=== PATIENT | female | born 2000 | race Caucasian/White ===

== ENCOUNTER 2023-12-06 21:56 | Observation (INO) | payer OTHER, SELFPAY ==
[2023-12-06] VITALS (17 sets, daily range): BP systolic 109–137; BP diastolic 75–118; PULSE 110–135; BMI 31.9
[2023-12-06 16:01] LABS: % Basophils 0.4 % (0-2); % Immature Granulocytes 0.2 % (0-0.5); % Lymphocytes 39.7 % (20.5-51.1); % Monocytes 7.2 % (1.7-9.3); % Neutrophils 50.5 % (42.2-75.2); Absolute Eosinophils 0.2 10^3/uL (0-0.7); Absolute Lymphocytes 3.2 10^3/uL (1.2-3.4); Absolute Monocytes 0.6 10^3/uL (0.1-0.6); Absolute Neutrophils 4.1 10^3/uL (1.4-6.5); Hematocrit 39.9 % (37.0-47.0); Hemoglobin 14.9 g/dL (12.0-16.0); Mean Corp Hgb Conc. 37.3 g/dL (33.0-37.0); Mean Corpuscular Hgb 30.6 pg (27.0-31.0); Mean Corpuscular Volume 81.9 fL (81.0-99.0); Mean Platelet Volume 9.3 fL (7.4-10.4); Nucleated Red Blood Cells % 0 %; Platelet Count 340 10^3/uL (130-400); Red Blood Cell Count 4.87 10^6/uL (4.20-5.40); Red Cell Dist. Width 12.1 % (11.5-14.5)
--- NOTE | 2023-12-06 16:04 | ED.GENMED ---
History of Present Illness
General
Chief Complaint: Cardiac Symptoms
Source: patient
Exam Limitations: none
Time Seen by Provider: 12/06/23 16:02
Nursing documentation reviewed up to this point in time: agreed with
Travel History
Have you had any contact with someone who has COVID-19?: No
Do you have any symptoms of coronavirus? Fever > 100 degrees, chills, cough, shortness of breath, sore throat, loss of taste or smell, muscle aches, or headache?: No
History of Present Illness
History of Present Illness:
This is a 20-year-old female with a history of PCOS who presents emergency department today with palpitations and shortness of breath x 2 days. She states that she was stepping out of the shower last night when she started to feel shortness of
breath and palpitations and looked down at her Apple Watch and noticed that her heart rate was in the 110s to 120s. She states that her resting heart rate is usually in the 80s. She states that her high heart rate continued into the night and she
also had a heart rate that was high this morning. Patient states that her shortness of breath is present constantly, but it is worse with exertion, and was particularly worse today when she is stepping out of bed. Patient does take OCPs daily for
her PCOS. Patient denies chest pain, abdominal pain, nausea, vomiting, diarrhea, sick contacts, recent travel, leg pain or swelling. Patient denies fevers or chills. Patient denies recent illnesses, recent hospitalizations.
Review of Systems
Review of Systems
All Other Systems: ROS reviewed and negative except as documented in HPI and ROS
Phy Exam
Physical Exam
Physical Exam:
Vitals: tachycardic otherwise VSS
General: Patient has anxious affect although is well-appearing in general
Skin: Warm and dry, no rashes or lesions. Cap refill <2 seconds.
Head: normocephalic, atraumatic
Cardiac: Patient is tachycardic otherwise has regular rhythm, no murmurs, rubs, gallop
Pulm: Normal respiratory effort, lung sounds equal bilaterally, no wheezes, rales, rhonchi
Abdomen: abdomen is non-distended, non-tender
Neuro: AAO x3.
Course
Orders/Labs/Results
Orders:
Orders
12/06/23 14:50
EKG [Electrocardiogram (*1)] Urgent
Reason for Study: Tachycardia
EKG- Treatment ONCE
Test Result ONCE
12/06/23 15:11
Complete Blood Count/With Diff Urgent
Prothrombin Time Urgent
Troponin I Urgent
12/06/23 15:24
Add On- LAB Urgent
Tests Added?: TSH to reflex free T4
12/06/23 16:13
CR Chest - 2 Views Urgent
Comment:
Reason For Exam: shortness of breath
12/06/23 16:21
Comprehensive Metabolic Panel Urgent
D-Dimer Urgent
HCG, Serum Qualitative Screen Urgent
TSH Reflex To Free T4 Urgent
Comment: ADD-ON
12/06/23 16:52
0.9% Sodium Chloride 1000 ml [Nss] 1,000 ml IV BOLUS
12/06/23 17:30
Orthostatic VS- Treatment ONCE
12/06/23 19:21
Urine Culture Reflexed from UA [Urinalysis Reflex To Culture] Urgent
Date Specimen was Collected: 12/06/23
Time Specimen was Collected: 19:03
Urine Drug Abuse Screen Urgent
Date Specimen was Collected: 12/06/23
Time Specimen was Collected: 19:03
Urine Microscopic Reflex Cult Urgent
12/06/23 21:12
Add On- LAB Urgent
Tests Added?: urine drug screen
12/06/23 21:16
CARDIOLOGY CONSULT Routine
Consulting Provider: Vasile Herbert
Was physician already notified: Yes
Reason for consult: sinus tachy
12/06/23 21:17
Metoprolol [Lopressor] 25 mg PO NOW STA
12/06/23 21:26
Admit/Transfer Patient As Directed
Co-Sign Provider:
Level of Care: Observation services
Assign to:: Telemetry
Physician / Group: Davy
Diagnosis: sinus tachy
Reason for Telemetry: Arrhythmia
Date to Stop Telemetry: 12/09/23
Time to Stop Telemetry: 11:00
12/06/23 21:27
Code Status As Directed
Resuscitation Status: Full Code
12/07/23 00:02
0.9% Sodium Chloride 1000 ml [Nss] 1,000 ml IV 125 mls/hr
12/07/23 00:02
Echo 2D MMode Color/Doppler Routine
Reason for Study: sinus tachy
Activity As Directed
Activity Level: With Assistance
Vital Signs As Directed
Frequency: Per unit guidelines
DX Deep Vein Thrombosis Video Routine
12/07/23 Dinner
Regular
At Your Request: Full Participation
12/07/23 18:00
Enoxaparin Sodium [Lovenox] 40 mg SC QPM
12/09/23 11:00
DC Protocol for Telemetry ONCE
Abnormal Lab Results
12/06/23 12/06/23 12/06/23
15:11 16:21 19:21
MCHC 37.3 H g/dL
(33.0-37.0)
Chloride 109 H mmol/L
(98-107)
Carbon Dioxide 21 L mmol/L
(22-30)
Urine Ketones Trace A
(Negative)
Ur Occult Blood Reflex 1+ A
(Negative)
Leukocyte Esterase Rfl Trace A
(Negative)
Urine RBC 3-6 A /HPF
(0-2)
Urine Bacteria (Reflex) Few A
(Negative)
12/06/23 15:11
12/06/23 16:21
Vital Signs
Initial and Last Documented VS:
Initial Vital Signs
Temp Pulse Resp BP Pulse Ox
98.8 F 120 18 111/89 99
12/06/23 14:49 12/06/23 14:49 12/06/23 14:49 12/06/23 14:49 12/06/23 14:49
Last Documented Vital Signs
Temp Pulse Resp BP Pulse Ox
98.2 F 113 16 121/74 98
12/07/23 07:00 12/07/23 08:15 12/07/23 07:00 12/07/23 07:15 12/07/23 07:00
MDM/Problems Addressed
Differential Diagnosis Includes:
ddx include dehydration, pulmonary embolism, dysrhythmia, electrolyte abnormalities, pneumonia
MDM/Problems Addressed:
shortness of breath
palpitations
Chronic conditions affecting care:
PCOS
Acute Exacerbation and/or Progression of Chronic Illness:
n/a
*Pulse Oximetry
Patient hypoxic: no
*EKG
Interpreted by ED Provider?: Yes
EKG Intrepretation Date: 12/06/23
Interpretation: abnormal
Comparison EKG: no comparison EKG present
Heart Rate: 113
Rate: tachycardiac
Rhythm: sinus
[place]: normal axis
Interval: normal interval, normal QT interval and normal [place] interval
QRS Pattern: normal QRS
Ischemia: non-specific ST changes
*Microfilming Document Preparer Interpretation
Rate: tachycardiac
Interpretation: abnormal
Heart Rate: 127
Rhythm: sinus
*Critical Care Note
Total Time (30-74mins, 75-104mins- exclusive of procedures): Not Applicable
Data Reviewed
Review of Other/Old Records Reveals: Records (reviewed ER physician documentation from 03/22/16) and Discharge Summary (no discharge summaries in [facility] to review)
Source: patient and family
Patient Management
Escalation/DeEscalation of care consider admission/obs:
23-year-old female with a past medical history of PCOS on OCPs, presenting to the emergency department today with concerns of palpitations and shortness of breath. The symptoms are yesterday, and she reports that her heart rate has been through
states did not and tachycardic in the 120s to 130s. Here in the emergency department, her CBC, CMP are unremarkable and her D-dimer is within normal limits. Her chest x-ray demonstrates no acute cardiopulmonary abnormality. Her EKG shows no signs
of ischemia or any dysrhythmias. On multiple reevaluations, patient denies any new symptoms other than SOB with standing and still feeling her heart race. At this point, there is no clear reason for her tachycardia. Patient accepted by admitting
team, cardiology aware of case who will see her in morning.
ED Attending Note
-
Portions of this chart may have been created with voice recognition software.� Occasional wrong word or��sound alike� substitutions may have occurred due to the inherent limitations of voice recognition software.
Discharge Plan
Departure
Patient Disposition: Admit
Date of Disposition: 12/06/23
Time of Disposition: 21:11
Presentation/result/management discussed w/ accepting MD/DO: Hospitalist
Condition: Good
Discharge Problem:
Tachycardia
Interventions
Interventions:
*Risk Screen - Suicide Last Done: 12/07/23 00:04
*General Assessment Last Done: 12/06/23 15:08
*Neglect/Abuse Screening Last Done: 12/06/23 15:08
ED- Fall Risk Assessment Last Done: 12/06/23 18:56
*ED COVID-19 Vaccine History Last Done: 12/07/23 00:04
*Nursing Disposition Last Done: 12/07/23 00:06
ED- Pulmonary Assessment Last Done: 12/06/23 18:56
ED- Cardiac Assessment Last Done: 12/06/23 18:56
Discharge Date and Time
Discharge Date/Time: 12/07/23 00:07
[2023-12-06 16:26] LABS: Troponin I < 0.012 ng/ml
[2023-12-06 16:42] LABS: HCG, Serum Qualitative Screen Negative
[2023-12-06 16:47] LABS: ALT (SGPT) 24 U/L (0-35); AST (SGOT) 25 U/L (14-36); Albumin 4.5 g/dl (3.5-5.0); Alkaline Phosphatase 106 U/L (38-126); Blood Urea Nitrogen 11 mg/dl (7-17); Calcium 9.7 mg/dl (8.4-10.2); Carbon Dioxide 21 mmol/L (22-30); Chloride 109 mmol/L (98-107); Estimated Creatinine Clearance 122 ml/min; Glucose 98 mg/dl (70-99); Potassium 4.1 mmol/L (3.5-5.1); Sodium 136 mmol/L (135-145); Total Bilirubin 0.5 mg/dl (0.2-1.3); eGFR > 60.00
[2023-12-06 16:48] LABS: D-Dimer < 0.27 ug/mlFEU (0.00-0.50)
[2023-12-06] MEDS: NSS 1000 IV (17:03)
[2023-12-06 17:18] LABS: TSH Reflex To Free T4 1.17 uIU/ml (0.47-4.68)
[2023-12-06 19:29] LABS: Urine Albumin Negative (Neg - Trace); Urine Bilirubin Negative (Negative); Urine Character Clear (Clear); Urine Color Yellow; Urine Glucose Negative (Negative); Urine Ketone Trace (Negative); Urine Leukocyte Trace (Negative); Urine Nitrite Negative (Negative); Urine Occult Blood 1+ (Negative); Urine Specific Gravity 1.015 (<1.030); Urine Urobilinogen Negative (Neg - 1+); Urine pH 6.5 (5.0-9.0)
[2023-12-06 19:40] LABS: Urine Bacteria Few (Negative); Urine Squamous Cell 16-20 /LPF (Few)
--- NOTE | 2023-12-06 21:18 | HPS.HSE ---
Family Physician
-
Family Physician: Radha Torres
Chief Complaint
-
Palpitations
History of Present Illness
23-year-old female with no past medical history presents with chief complaint of palpitations. Yesterday she noticed palpitations and her Apple Watch noted that her heart rate was fast. She had some associated shortness of breath. She notices
that her palpitations worsen when going from a sitting to a standing position. Denies any other acute complaints. Denies chest pain, nausea, vomiting, diarrhea, diaphoresis, abdominal pain, fevers, headache, rash, neurological deficit.
Medical History
Past Medical History
Past Medical History: Reports None
Past Surgical History: Reports Other (N/A)
Social History
Tobacco: Non-smoker
Alcohol: Occasional
Drug: None
Family History
Family History: Not pertinent
Allergies / Home Medications
Allergies reflects when Allergies were last updated in [employer].
Home Medications with original date entered in [employer]
Allergy/Medication List:
Allergies
Allergy/AdvReac Type Severity Reaction Status Date / Time
No Known Allergies Allergy Verified 12/06/23 14:48
Home Medications
cholecalciferol (vitamin D3) 25 mcg (1,000 unit) tablet (Vitamin D3) 1,000 unit PO DAILY 11/22/14
multivitamin (Daily Multiple tablet) 1 ea PO DAILY 11/22/14
Review of Systems
-
History Source: Patient
A 12 point ROS was completed and negative except as noted: Yes
Physical Exam
Vital Signs
Vital Signs
Temp Pulse Resp BP Pulse Ox
98.5 F 123 22 123/75 97
12/06/23 18:56 12/06/23 20:30 12/06/23 20:30 12/06/23 20:03 12/06/23 20:15
Physical Exam
General: Other (.)
Laboratory Results
-
12/06/23 15:11
12/06/23 16:21
Laboratory Results
PT 12.0 Sec (11.4-14.6) 12/06/23 15:11
INR 0.90 12/06/23 15:11
Total Bilirubin 0.5 mg/dl (0.2-1.3) 12/06/23 16:21
AST 25 U/L (14-36) 12/06/23 16:21
ALT 24 U/L (0-35) 12/06/23 16:21
Alkaline Phosphatase 106 U/L (38-126) 12/06/23 16:21
Troponin I < 0.012 ng/ml 12/06/23 15:11
Impression/Plan
-
Gen: NAD, AAOx3.
Eyes: EOMI, PERRLA, no scleral icterus.
Neck: supple.
CV: tachy, reg rhythm, +S1/S2, no m/r/g.
Resp: CTAB, no rales, wheezes, or rhonchi.
Abd: +BS, soft, NT, ND
Skin: No rashes.
Neuro: CN 2-12 intact, non-focal.
Psych: Normal mood and affect.
CXR: No evidence of active cardiopulmonary disease.
Sinus tachycardia:
-ECG (read by me): sinus tachy @ 113, normal axis/intervals, TWi III, V1, V3-V5, TW-flattening aVF, V2, V6, no acute ST changes
-D-dimer, trop, TSH normal
-check UDS
-start Lopressor 25mg PO BID
-check echo
-c/s cards
Obesity due to excess calories, BMI 31.9, encourage weight loss, affects all aspects of care
FULL/Lovenox
[2023-12-06 21:33] LABS: Amphetamines Negative (Negative); Barbiturates Negative (Negative); Benzodiazepines Negative (Negative); Buprenorphine Negative (Negative); Cocaine Negative (Negative); Marijuana Negative (Negative); Methadone Negative (Negative); Methamphetamines Negative (Negative); Opiates Negative (Negative); Phencyclidine Negative (Negative); Tricyclic Antidepressants Negative (Negative)
[2023-12-06] MEDS: LOPRESSOR 25 MG PO (22:10)
[2023-12-07 00:01] VITALS: BP 129/91; BMI 31.5
[2023-12-07] MEDS: NSS 1000 IV ×2 (00:35→08:22)
[2023-12-07] MEDS: TYLENOL 650 MG PO ×2 (00:40→15:57)
--- NOTE | 2023-12-07 00:46 | PTCARENOTE ---
Received pt from ED. Ambulated w/o assistance from stretcher to bed; steady gait. Oriented to room. Mother at bedside. Tele- SR. HR 80s. Assessment noted as documented. VSS. Offers no complaints at this time. NSS infusing at 125ml/hr. Currently in
bed; call jocelyn w/in reach.
[2023-12-07 05:00] VITALS: BP 110/57
--- NOTE | 2023-12-07 06:32 | W.PN.HOSP.TC ---
Addendum entered and electronically signed by Jered Smith MD 12/07/23 16:11:
Addendum
CT chest no PE and normal clear lungs
Total discharge time spent to see the patient, examine the patient on the floor, review data and lab results, discuss treatment plan with patient, nursing staff around 65 minutes
dc home
Given script to return to work on 12/09/23. Counseled to follow healthy life style and loose weight.
Addendum entered and electronically signed by Jered Smith MD 12/07/23 14:28:
addendum
Echo is normal
Ambulatory SaO2 at 99-98%
Patient reports subjective feeling of shortness of breath upon exertion/walking. She is on control which is a risk factor. Discussed option to do CT angiogram of the chest to rule out PE. She verbalized understanding to the potential side
effect of IV contrast. Her parents in the room and attended the discussion. patient agreed to do CT angiogram.
End
Original Note:
Today's Communication/Plan
-
possible dc later today
Assessment / Plan
Assessment / Plan
Physical Exam
-
General: No Apparent Distress
HEENT: Normocephalic and Atraumatic
Respiratory: Negative Wheezes or Rales
Cardiac: Regular Rhythm and S1/S2
GI: Soft and Nontender
Genito-urinary: No Costovertebral Tender
Musculoskeletal: No Edema
Neuro: AO x 3, followed commands.
Psych: Calm, no agitation.
Sinus tachycardia:
-ECG (read by me): sinus tachy @ 113, normal axis/intervals, TWi III, V1, V3-V5, TW-flattening aVF, V2, V6, no acute ST changes
-D-dimer, trop, TSH normal
-Negative UDS
-s=given one dose Lopressor 25mg
-check echo
-c/s cards
#PCOS:
She takes control pills.
Obesity due to excess calories, BMI 31.9, encourage weight loss, affects all aspects of care
FULL/Lovenox
Total time spent to see the patient, examine the patient on the floor, review data and lab results, discuss treatment plan with patient, nursing staff around 55 minutes
Anticipated Discharge: Today
Subjective/Interval History
-
Date of Service: December 07, 2023
No chest pain
She feels palpitations
Objective Data
-
Vital Signs:
Vital Signs
Temp Pulse Resp BP Pulse Ox
98.4 F 94 16 110/57 98
12/07/23 05:00 12/07/23 05:00 12/07/23 05:00 12/07/23 05:00 12/07/23 05:00
[2023-12-07 07:15] VITALS: BP 121/74
--- NOTE | 2023-12-07 08:17 | CON.CAR ---
Addendum entered and electronically signed by Good Rosado MD 12/07/23 11:26:
I saw and examined the patient.
The LOFT WORKER's note was reviewed and I agree with the note.
Comment: Not sure if will find a good explanation for her CP, dyspnea, and palpitations, DDimer normal so DVT/PE seems unlikely. EKG has mild nonspecific changes. Will check another trop and EKG. Too early to diagnose inappropriate sinus
tachycardia.
Original Note:
Consultation
Consultation Request
Date/Time Consultation Requested: 12/06/232115
Date/Time Consultation Performed: 12/07/23804
Requesting Provider: Dr. Bhatti
Performing Provider: Kateryna BECK for Dr. Rosado
Reason for Consultation: tachycardia
Medical History
-
Chief Complaint: palpitations
History of Present Illness:
23 y/o female with PCOS and dyslipidemia who is here for evaluation of palpitations that started around 1 PM on Thursday. Briefly, she went to the gym and felt fine, she came home to shower and when she got out of the shower she felt palpitations.
Her apple watch showed her HR was in 100's at rest (rather than it's usual 80's). She also felt SOB/chest heaviness since then. Hard to take a big breath. Chest heavier with laying. She gets QUIJANO easily. EKG shows ST with ST/T abnormalities, but no
previous EKG to compare. Had Covid19 over the New Year and has had a stuffy nose since then. Recently started taking Kiala super greens, but no other new meds or supplements.
Past Medical History
Past Medical History: Hypercholesterolemia and Other (PCOS)
Social History
Tobacco: Non-Smoker
Alcohol: Occasional
Drug: None
Family History
Family History: Reviewed & Not Pertinent
Allergies / Home Medications
Allergy/AdvReac Type Severity Reaction Status Date / Time
No Known Allergies Allergy Verified 12/06/23 14:48
Medication Instructions Recorded Confirmed Type
cholecalciferol (vitamin D3) 25 1,000 unit PO DAILY 11/22/14 12/06/23 History
mcg (1,000 unit) tablet (Vitamin
D3)
multivitamin (Daily Multiple 1 ea PO DAILY 11/22/14 12/06/23 History
tablet)
Kiala Supergreens 1 dose PO DAILY 12/06/23 12/06/23 History
Vestura (28) 1 tab PO DAILY 12/06/23 12/06/23 History
Review of Systems
-
History Source: Patient
All other systems: Negative unless noted
Respiratory: Trouble Breathing
Cardiac: Chest Pain and Palpitations
Physical Exam
Vital Signs
Temp Pulse Resp BP Pulse Ox
98.2 F 113 16 121/74 98
12/07/23 07:00 12/07/23 08:15 12/07/23 07:00 12/07/23 07:15 12/07/23 07:00
Lab Results
12/06/23 15:11
12/06/23 16:21
Troponin I < 0.012 ng/ml 12/06/23 15:11
Physical Exam
General: Well Developed, Well Nourished and No Apparent Distress
HEENT: Normocephalic and Anicteric
Respiratory: Clear and Non Labored Respirations
Cardiac: Regular Rhythm
Breast: Deferred by me
Musculoskeletal: No Edema
Skin: Warm and Dry
Neuro: AO x 3
Psych: Calm
Impression / Plan
-
Palpitations/Tachycardia/abnormal EKG/SOB/chest heaviness:
-90's at rest, HR up to 120's on telemetry- all sinus. Did receive 1 dose of PO metoprolol in ER.
-CXR normal, D-dimer, trop, TSH normal, labs unremarkable overall- repeat EKG, trop this AM. Check BNP.
-check echo, follow telemetry
PCOS:
-follow with usual provider as OP on this
HLD:
-follow with usual provider as OP on this
Data Reviewed
-
EKG: Tracing Personally Visualized and interpreted (ST at 113 BPM, anterior t wave abnormality)
Radiology: Report Reviewed by me (CXR: No evidence of active cardiopulmonary disease.)
Labs: Labs Reviewed by me
--- NOTE | 2023-12-07 08:43 | PTCARENOTE ---
Pt c/o palpitations and SOB when moving. Pt remains SR to ST, 92-121. Will monitor.
[2023-12-07 11:03] LABS: NT-proBNP 135 pg/ml; Troponin I < 0.012 ng/ml
--- NOTE | 2023-12-07 11:50 | CM ---
Chart reviewed. Patient is independent of ADLS, lives with her patients in a 2 S[address], 1 TITO, 0 DME. Plan is for the patient to return home. CM to follow
--- NOTE | 2023-12-07 16:05 | W.DCSUMMARY ---
Discharge Summary
Discharge Data
Date of Admission: 12/06/23
Date of Discharge: 12/07/23
-
Pending Results: No
Hospital Course
23 years old female presented for evaluation of palpitations that started 2 days ago. Patient reported exertional shortness of breath. She denied fever or cough. She was found to have sinus tachycardia with heart rate averaging 80-90 upon rest
and 100- 120 upon exertion. Electrocardiogram showed nonspecific changes. She had serial troponin that was negative. Chest radiography did not show acute findings. Chest scan angiogram did not show pulmonary embolism and showed clear lungs.
Ambulatory oxygen level remained normal around 98 to 99% upon walking. Echocardiogram showed normal left ventricular function, left ventricular ejection fraction of 55 - 60%, with normal right ventricle size and function. Thyroid-stimulating
hormone level was normal. [id number] peptide was normal. Urine drug screen was negative. She remained hemodynamically stable. Cardiology recommended outpatient follow-up.
Discharge Plan
-
Patient Disposition: Home (Routine Discharge)
Discharge Diagnosis/Procedures: Palpitation.
You presented with palpitation and exertional shortness of breath. You were seen by php mysql developer. You had echocardiogram that was unremarkable. Blood work including thyroid test was normal. You had Chest scan angiogram and showed normal lungs with
no pulmonary embolism ( blood clot). Your oxygen level remained normal upon walking.
Follow with your primary care doctor and php mysql developer.
Diet: As tolerated
Referrals:
Radha Torres CRNP [Family Provider] - in one to two weeks
Good Rosado MD [Active] - 01/05/24 10:20 am
Prescriptions:
Continued
multivitamin [Daily Multiple] 1 EACH tablet
1 ea PO DAILY
cholecalciferol (vitamin D3) [Vitamin D3] 1,000 UNIT tablet
1,000 unit PO DAILY
Vestura (28)
1 tab PO DAILY
Kiala Supergreens
1 dose PO DAILY
Discharge Orders:
Discharge Patient (As Directed); Ordered 12/07/23
Ordered By: Jered Smith
Care Plan Goals
Care Plan Goals:
Problem: Readiness for enhanced knowledge related to diagnosis and treatment plan
Goal: Understand your diagnosis and treatment plan needs, including medications if applicable.
Instructions: Know your diagnosis, underlying causes and treatment plan options, including medications if applicable. Consult with your health care team to learn about your diagnosis and treatment plan, including medications if applicable.
[2023-12-07] MEDS: NSS IV (17:00)
== END 2023-12-07 17:35 | disposition home or self-care (01) ==
LOC: IVU 21:56
PROVIDERS: Emergency Medicine; Nurse Practitioner; Physician Assistant; ADMITTING PHYSICIAN Internal Medicine; ATTENDING PHYSICIAN Internal Medicine; EMERGENCY PHYSICIAN Emergency Medicine; FAMILY PHYSICIAN Registered Nurse; OTHER PHYSICIAN Internal Medicine Cardiovascular Disease
DX: R00.2 Palpitations (principal); R06.02 Shortness of breath; R00.0 Tachycardia, unspecified; E66.09 Other obesity due to excess calories; E78.00 Pure hypercholesterolemia, unspecified; E28.2 Polycystic ovarian syndrome; Z68.31 Body mass index [BMI] 31.0-31.9, adult; Z79.899 Other long term (current) drug therapy
CPT/HCPCS: 71046; 71275; 80053; 80306; 81003; 81015; 83880; 84443; 84484; 84703; 85025; 85379; 85610; 93005; 93306; 96360; 99285; G0378; Q9967

== ENCOUNTER 2024-02-04 19:02 | Emergency (ER) | payer OTHER, SELFPAY ==
[2024-02-04 19:07] VITALS: BP 130/87
--- NOTE | 2024-02-04 20:45 | ED.GENMED ---
History of Present Illness
General
Chief Complaint: Musculo-Skeletal Complaint
Source: patient
Exam Limitations: none
Time Seen by Provider: 02/04/24 20:30
Nursing documentation reviewed up to this point in time: agreed with
Travel History
Have you had any contact with someone who has COVID-19?: No
Do you have any symptoms of coronavirus? Fever > 100 degrees, chills, cough, shortness of breath, sore throat, loss of taste or smell, muscle aches, or headache?: No
History of Present Illness
History of Present Illness:
Patient is a 24-year-old female who presents to the ER complaining of left knee pain/injury. 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 Patient has torn her medial ligament in
the past and has had patella knee dislocations during previous injuries from gymnastics and cheer. Patient however with this injury is able to bear weight and it does not feel as bad as previous injuries. She did take Motrin before she came to the
ER. She denies any other injuries.
Review of Systems
Review of Systems
Allergies reviewed?: Yes
All Other Systems: ROS reviewed and negative except as documented in HPI and ROS
Constitutional: Reports no symptoms; Denies fever, fatigue or chills
EENT: Reports no symptoms
Musculoskeletal: Reports other (left knee injury )
Skin: Reports no symptoms
Psychiatric: Reports no symptoms
Phy Exam
General Physical Exam
General Presentation: no apparent distress
General age: appears stated age
General Skin: warm and dry
General Habitus: normal
General Mental: alert
General Hydration: appears well hydrated
Neurological Exam
Neurological Exam: alert and oriented x3
Musculoskeletal Exam
Musculoskeletal Exam: other (LLE with strong pulses mildly tender to medial aspect of left knee able to flex and extend no ligament laxity able to lift leg off the stretcher negative drawer sign nontender over patella, nontender over anterior knee
old appearing ecchymosis patient reports this is old no abrasions or lacerations)
Skin Exam
Skin Exam: normal color and warm/dry
Psychiatric Exam
Psychiatric Exam: normal mood/affect
Course
Orders/Labs/Results
Orders:
Orders
02/04/24 19:08
Knee, Left 4 or More Views [CR Knee - Left 4 Or More View*] Urgent
Comment:
Reason For Exam: injury
02/04/24 20:44
Knee Immobilizer Left-Treatmen ONCE
02/04/24 20:45
Crutches-Treatment ONCE
Vital Signs
Initial and Last Documented VS:
Initial Vital Signs
Temp Pulse Resp BP Pulse Ox
98.3 F 101 16 130/87 100
02/04/24 19:07 02/04/24 19:07 02/04/24 19:07 02/04/24 19:07 02/04/24 19:07
Last Documented Vital Signs
Temp Pulse Resp BP Pulse Ox
98.3 F 101 16 130/87 100
02/04/24 19:07 02/04/24 19:07 02/04/24 19:07 02/04/24 19:07 02/04/24 19:07
MDM/Problems Addressed
Differential Diagnosis Includes:
Not limited to meniscus injury medial sprain strain tendon injury fracture
MDM/Problems Addressed:
Patient with mild tenderness to medial aspect of knee over MCL no laxity able to flex and extend patient has an appointment already with Jhony that she schedule online for Thursday. Will DC with immobilizer crutches Motrin nonweightbearing until
Ortho follow-up. X-ray reviewed the patella is in relatively high position but these x-rays are unchanged from prior x-rays and patient does not examine like a patellar tendon tear.
*Radiology
Radiology exam reviewed: radiology read reviewed
*Critical Care Note
Total Time (30-74mins, 75-104mins- exclusive of procedures): Not Applicable
ED Attending Note
-
Portions of this chart may have been created with voice recognition software.� Occasional wrong word or��sound alike� substitutions may have occurred due to the inherent limitations of voice recognition software.
Discharge Plan
Departure
Patient Disposition: Home (Routine Discharge)
Date of Disposition: 02/04/24
Time of Disposition: 21:49
Patient with high blood pressure during this ER visit?: Yes
Covid-19: Not Applicable
Discharge Problem:
Knee sprain
Instructions: Knee Immobilizer (DC), Knee Sprain (DC)
Prescriptions:
No Action
multivitamin [Daily Multiple] 1 EACH tablet
1 ea PO DAILY
cholecalciferol (vitamin D3) [Vitamin D3] 1,000 UNIT tablet
1,000 unit PO DAILY
Vestura (28)
1 tab PO DAILY
[facility]
1 dose PO DAILY
Activity Restrictions/Additional Instructions:
Wear immobilizer for support use crutches for ambulation.
no weightbearing until seen and evaluated by orthopedics. Keep elevated as much as possible. Ice the affected area for the first 24 hours 20 minutes at a time several times a day. Ibuprofen every 8 hours with food.
Follow-up with orthopedics as scheduled
Return if any worsening of symptoms.
Interventions
Interventions:
*Risk Screen - Suicide Last Done: 02/04/24 19:07
*General Assessment Last Done: 02/04/24 19:07
*Neglect/Abuse Screening Last Done: 02/04/24 19:07
ED-Musculoskeletal Assessment Last Done: 02/04/24 20:27
Discharge Date and Time
Print Language: VINCENTIAN
[2024-02-04 21:55] VITALS: BP 130/87
== END 2024-02-04 21:57 | disposition home or self-care (01) ==
LOC: EMR 19:02
PROVIDERS: EMERGENCY PHYSICIAN Emergency Medicine; FAMILY PHYSICIAN Registered Nurse
DX: M25.562 Pain in left knee (principal)
CPT/HCPCS: 99283; 29505; 73564